=== PATIENT | male | born 1985 | race Two or more races ===

== ENCOUNTER 2023-08-19 13:09 | Emergency (ER) | payer SELFPAY ==
[~2023-08-19] VITALS: Ht 172.7 cm; Wt 79.0 kg
[2023-08-19 13:18] VITALS: BP 113/70; PULSE 101; RESP 16; TEMP 98.1; O2SAT 99
[2023-08-19] MEDS: SODIUM CHLORIDE 0.9% 1,000 ML IV ONE (13:45)
[2023-08-19 14:33] LABS: BASOPHILS % 2.3 % (0.0-2.0); EOSINOPHILS % 2.1 % (0.0-5.0); HEMATOCRIT. 26.2 % (42.0-52.0); HEMOGLOBIN. 8.2 g/dL (14.0-18.0); LYMPHOCYTES % 49.1 % (20.0-50.0); MEAN CORPUSCULAR HGB CONC 31.3 g/dL (31.0-37.0); MEAN CORPUSCULAR VOLUME 63.7 fL (80.0-94.0); MONOCYTES % 4.4 % (2.0-8.0); NEUTROPHILS % 42.1 % (40.0-76.0); PLATELET 284 x1000/uL (130-400); RED BLOOD CELL COUNT 4.11 mill/uL (4.7-6.1); RED CELL DISTRIBUTION WIDTH 19.2 % (11.6-14.6)
[2023-08-19 14:51] LABS: ADD RBC MORPHOLOGY YES; DIFFERENTIAL COMMENT 1
[2023-08-19 14:54] LABS: ALANINE AMINOTRANSFERASE 19 IU/L (10-49); ALBUMIN 4.3 g/dL (3.2-4.8); ASPARTATE AMINOTRANSFERASE 39 IU/L (<34); BILIRUBIN TOTAL 0.8 mg/dL (0.1-1.0); CALCIUM 8.4 mg/dL (8.7-10.4); CARBON DIOXIDE 26 mEq/L (21-32); CHLORIDE 107 mEq/L (98-107); CREATININE 0.6 mg/dL (0.6-1.3); GLUCOSE 104 mg/dL (70-105); POTASSIUM 3.8 mEq/L (3.5-5.1); PROTEIN TOTAL 7.9 g/dL (6.0-8.3); SODIUM 142 mEq/L (136-145); TROPONIN I HIGH SENSITIVITY 4 ng/L (3.0-53); UREA NITROGEN BLOOD 15 mg/dL (9-23)
[2023-08-19 14:56] LABS: ETHANOL BLOOD 347 mg/dL (<10)
[2023-08-19 16:32] LABS: ANISOCYTOSIS 2+
[2023-08-19 16:34] LABS: HYPOCHROMASIA 2+; MICROCYTOSIS 3+
[2023-08-19 16:35] LABS: PLATELET ESTIMATE NORMAL
[2023-08-19 16:38] LABS: ACETAMINOPHEN < 2 ug/mL (10-30)
== END 2023-08-19 17:51 | disposition left against medical advice (07) ==
LOC: ER 13:09 → EDBD 13:09 → ER 17:51
DX: F10.229 Alcohol dependence with intoxication, unspecified (principal); R41.82 Altered mental status, unspecified; Y90.8 Blood alcohol level of 240 mg/100 ml or more
CPT/HCPCS: 80053; 80307; 80329; 80320; 85025; 84484; 36415; 71045; 70450; 93005; 96360; 96361; 99285; J7030; G0480